=== PATIENT | male | born 1980 | race American Indian/Alaskan Native ===

== ENCOUNTER 2018-10-12 21:56 | Emergency (ER) | payer SELFPAY | END 2018-10-13 00:13 | disposition left against medical advice (07) | LOC: ED 21:56 | DX: M79.601 Pain in right arm (principal); Z53.21 Procedure and treatment not carried out due to patient leaving prior to being seen by health care provider ==

== ENCOUNTER 2018-10-16 15:42 | Emergency (ER) | payer SELFPAY ==
[2018-10-16 18:07] VITALS: BP 174/102
--- NOTE | 2018-10-16 18:09 | Emergency Department Report ---
Blank Doc - Documentation Documentation: 38 y o male presents for fluid drainage from right elbow states he got similar symptoms 2 yaers ago and had it drained here [facility] eval
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
== END 2018-10-16 20:50 | disposition home or self-care (01) ==
LOC: ED 15:42
DX: M71.021 Abscess of bursa, right elbow (principal); I10 Essential (primary) hypertension; J45.909 Unspecified asthma, uncomplicated; F17.200 Nicotine dependence, unspecified, uncomplicated; F12.10 Cannabis abuse, uncomplicated; Z98.890 Other specified postprocedural states